=== PATIENT | female | born 1960 | race Caucasian/White ===

== ENCOUNTER 2025-05-26 21:02 | Emergency (ER) | payer OTHER, SELFPAY ==
--- OUTSIDE RECORDS SUMMARY | 2021-08-28 12:13 | XMS_ITS | Encounter Summary ---
Author Organization [facility] Address [facility] [address] [place] [address] Phone Care Team Providers Care Veterinary Attendant Name Role Phone Arpita Asif MD Primary Care Provider [phone] Encounter Details Date Type Department Care Team (Late st Contact Info) Description 08/28/2021 11:13 AM EST Hospital Encounter [facility] [address] [place] [address] Ryan Garcia PA [address] [place] [address] [email or web address] Social History Tobacco Use Types Packs/Day Years Used Date Smoking Tobacco: Every Day Cigarettes 0.5 3 Smokeless Tobacco: Never Alcohol Use Standard Drinks/Week Comments Not Currently 0 (1 standard drink = 0.6 oz pur e alcohol) no drink x 19 months Child or Family Care Answer Date Record ed Do you have problems with on e of the following making it difficult for you to work, study, or receive health care? No 08/05/2021 Education Answer Date Recorded Are you interested in more education? Not on boom e 08/15/2023 Are you concerned about learning? Not on file 08/15/2023 No 08/15/2023 No 08/15/2023 Food Answer Date Recorded Within the past 6 months we worried whether our food would run out before we got money to buy more. Never True 08/05/2021 Within the past 6 months the food we bought just didn't last and we didn't have enough money to get more. Never True Residential Stability Answer Date Recor ded What is your housing situation today? I have [place]le [place] 08/05/2021 How many times have you moved in the past 12 tue ths? Two or more times 08/05/2021 Paying for Meds Answer Date Recorded Do you have trouble paying for medicines? No 08/05/2021 Paying Utility Bills Answer Date Record ed Do you have trouble paying your heating or elect ricity bill? No 08/05/2021 Transportation Answer Date Recorded Has the lack of transportati on kept you from medical appointments or from getting medications? Yes 08/05/2021 Unemployment Answer Date Recorded Are you currently unemployed or working on a part-time or temporary basis, and looking for work? I choose not to answer 08/05/2021 Digital Access Answer Date Recorded No 02/14/2023 No 02/14/2023 Reliable internet access at home? Not on file 02/14/2023 Device with a working camera? Not on file Intimate Partner Violence Answer Date R ecorded Are you denied basic needs s uch as food, clothing, or medical care? No 01/04/2024 In the past 12 months have y ou been in a relationship with a person who hurts, threatens, or tries to control you? No 01/04/2024 Are you denied basic needs s uch as food, clothing, or medical care? No 01/04/2024 In the past 12 months have y ou been in a relationship with a person who hurts, threatens, or tries to control you? 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 Wish to be (Past 1 Month) No 01/04/2024 7:05 PM EDT Mary Grace Donaldson RN 2. Non-Specific Active Suicidal Thoughts (Past 1 Month) No 01/04/2024 7:05 PM EDT Mary Grace Donaldson RN 3. Active Suicidal Ideation with any Methods (Not Plan) Without Intent to Act (Past 1 Month) Yes 02/04/2022 5:32 PM EDT Leslie Villalobos RN 4. Active Suicidal Ideation with Some Intent to Act, Without Specific Plan (Past 1 Month) No 02/04/2022 5:32 PM EDT Leslie Villalobos RN 5. Active Suicidal Ideation with Specific Plan and Intent (Past 1 Month) Yes 02/04/2022 5:32 PM EDT Leslie Villalobos RN 6. Suicidal Behavior (Lifetime) No 01/04/2024 7:05 PM EDT Mary Grace Donaldson RN documented as of this encounter Plan of Treatment Upcoming Encounters Date Type Department Care Team (Late st Contact Info) Description 05/23/2025 Procedure Pass [facility] [address] [facility] [address] [place] [address] 09/18/2025 11:00 AM EST Office Visit [facility] [address] [facility] [address] [place] [address] Arpita Asif MD [address] [place] [address] 11/05/2025 3:00 PM EST Appointment [facility] [address] [facility] [address] [place] [address] Arpita Asif MD [address] [place] [address] [email or web address] documented as of this encounter Procedures Procedure Name Priority Date/Time Associated Diagnosis Comments XR CHEST PA AND LATERAL 2 VIEWS Urgent/patient waiting 08/28/2021 11:20 AM EST Bronchitis documented in this encounter Results * XR CHEST PA AND LATERAL 2 VIEWS (08/28/2021 11:20 AM EST) Anatomical Region Laterality Modality Chest Computed Radiogr aphy 08/28/2021 11:2 3 AM EST Impressions 08/28/2021 11:29 AM EST No pneumonia or pulmonary edema. ATTESTATION: Harman Benitez as teaching physician, have reviewed the images for this case and if necessary edited the report originally created by Sherif Richards. Narrative 08/28/2021 11:29 AM EST XR CHEST PA AND LATERAL 2 VIEWS COMPARISON: XR CHEST PORTABLE and chest x-ray dated August 20, 2017. FINDINGS: Devices/Tubes/Lines: None. Lungs: No focal consolidation or pulmonary edema. Bibasilar atelectasis. Pleura: No pleural effusion or pneumothorax. Heart/Mediastinum: Normal cardiomediastinal silhouette. Bones/Soft Tissues: Mild anterior compression deformity of the lower thoracic vertebral body, new since 2016. No significant skeletal abnormality. Procedure Note Harman Oseguera, DO - 08/28/2021 XR CHEST PA AND LATERAL 2 VIEWS COMPARISON: XR CHEST PORTABLE and chest x-ray dated 2016. FINDINGS: Devices/Tubes/Lines: None. Lungs: No focal consolidation or pulmonary edema. Bibasilar atelectasis. Pleura: No pleural effusion or pneumothorax. Heart/Mediastinum: Normal cardiomediastinal silhouette. Bones/Soft Tissues: Mild anterior compression deformity of the lowerthoracic vertebral body, new since 2016. No significant skeletalabnormality. IMPRESSION: No pneumonia or pulmonary edema. ATTESTATION: Harman Benitez as teaching physician, have reviewed theimages for this case and if necessary edited the report originally createdby Sherif Richards. Ryan WILSON IMG XR CHEST Final Resul t documented in this encounter Visit Diagnoses Not on filedocumented in this encounter Additional Health Concerns Infection Onset Date Last Indicated Resolved Time CoV-Risk Comment:Per Ambulatory Triage Form 08/17/2021 08/28/202109/07 1:23 AM EST CoV-Exposed Comment:Recent close contact documented in the Travel/Symptom Screening Form 01/28/2022 01/28/2022 02/08/2022 1:23 AM E DT CoV-Risk 10/07/2022 10/07/2022 10/18/2022 1:22 AM EST Assessment Noted Time PHQ-2 Depression Total Score: 2 08/05/20 1:39 AM EST documented as of this encounter Care Teams Veterinary Attendant Relationship Specialty Start Date End Date Arpita Asif MD [address] [place] [address] [email or web address] PCP - General Family Medicine 08/06/21 documented as of this encounter Additional Source Comments The information contained in this document represents components of the legal health record. It is not the complete legal health record.[facility]
[2025-05-26 21:16] VITALS: BP 142/88; BP 99/61; PULSE 75; PULSE 88; RESP 16; TEMP 36.6; O2SAT 95; O2SAT 97; BMI 29.5
--- NOTE | 2025-05-26 21:30 | ED.ALCOHOL ---
HPI - Alcohol General Chief Complaint: ETOH/Substance Use Stated Complaint: etoh Time Seen by Provider: 05/26/25 21:03 History of Present Illness HPI narrative: Patient is a 64-year-old female presents today with having grossly intoxicated. Patient was drinking heavily at a restaurant. There is no suicidal homicidal ideation. Patient had some stressors in life. Related Data Previous Rx's ?Medication ?Instructions ?Recorded ondansetron 4 mg disintegrating 4 mg PO Q8H PRN nausea and 05/27/25 tablet vomiting #10 tabs Allergies Allergy/AdvReac Type Severity Reaction Status Date / Time No Known Allergies Allergy Verified 05/26/25 21:18 Review of Systems Review of Systems: No fever no chills no chest pain or shortness breath PMFSH Past Medical History Attestation statement: The following information was validated with the patient. Physical Exam ED Exam Exam: Appearance: Alert. Oriented X3. No acute distress. Eyes: Pupils equal, round and reactive to light. ENT: Pharynx normal. Neck: Normal inspection. Neck supple. No lymph nodes noted. No crepitus CVS: Normal heart rate and rhythm. Pulses normal. Normal S1 and S2 Respiratory: No respiratory distress. Breath sounds normal. No Wheezing. No rales Abdomen: Soft and nontender. No rigidity. No distention. good BS x4 Skin: Skin warm and dry. Normal skin color. Normal skin turgor. Extremities: No lower extremity edema. Neurovascular intact to all extremities. No Lacerations. No Rash Neuro: Oriented X 3. No motor deficit. No sensory deficit. Moving all extermities. No slurred speech Vital Signs: Vital Signs - 24 hr 05/26/25 21:16 05/27/25 00:16 05/27/25 04:50 Temperature 97.9 F Pulse Rate 75 78 Respiratory Rate 16 14 16 Blood Pressure 99/61 134/84 Pulse Oximetry 95 95 Oxygen Delivery Method Room Air Room Air BMI result Body Mass Index 29.5 Medical Decision Making Medical Decision Making MDM Narrative: Currently awaiting clinical sobriety. Patient's electrolytes are unremarkable. Patient's alcohol was at 0242 at approximately 23:00. Currently awaiting sobering. Likely can be discharged home in a.m.. Not suicidal not homicidal 5:56 AM 05/27/2025 (Dr. Pippa Terry D.O.) patient is now sober as evidenced by clear speech and steady gait. Plan for discharge home and outpatient follow up. Patient understands and agrees with plan for discharge. Discharged home in stable condition. Differential Diagnosis Differential Diagnoses: The differential diagnosis associated with the presentation includes ETOH intoxication versus altered mental status Lab Data MDM Lab Attestation statement: I reviewed the patient's lab results. 05/26/25 21:58 05/26/25 22:43 Labs: Lab Results 05/26/25 05/26/25 Range/Units 21:58 22:43 WBC 7.7 (4.8-10.8) X10*3/uL RBC 4.74 (4.20-5.50) X10*6/uL Hgb 14.1 (12.0-16.0) g/dl Hct 41.6 (37.0-47.0) % MCV 87.8 (80.0-98.0) fL MCH 29.7 (27.0-33.0) pg MCHC 33.9 (31.0-35.0) g/dl RDW 12.6 (11.0-16.0) % Plt Count 235 (160-400) X10*3/uL MPV 9.6 (9.4-12.3) fL Immature Gran % (Auto) 0.1 (0.0-0.4) % Neut % (Auto) 66.4 (45-73) % Lymph % (Auto) 26.5 (20-40) % [place] % (Auto) 5.1 (2-11) % Eos % (Auto) 1.0 (0-4) % Baso % (Auto) 0.9 (0-2) % Lymph # (Auto) 2.0 (1.2-4.9) X10*3/uL [place] # (Auto) 0.4 (0.1-1.2) X10*3/uL Eos # (Auto) 0.1 (0.0-0.4) X10*3/uL Baso # (Auto) 0.1 (0.0-0.2) X10*3/uL Abs Immat Gran (auto) 0.01 (0.00-0.03) X10*3/uL Absolute Neuts (auto) 5.1 (2.0-8.3) x10*3/uL Absolute Nucleated RBC 0.000 (0.0-0.012) X10*3/uL Nucleated RBC % (auto) 0.0 (0.0-0.2) /100WBC Sodium 145 (135-145) mmol/L Potassium 3.9 (3.3-5.1) mmol/L Chloride 109 H (96-108) mmol/L Carbon Dioxide 23 (22-29) mmol/L Anion Gap 17 (12-20) BUN 6 L (9-16) mg/dL Creatinine 0.68 (0.5-1.4) mg/dL Estim Creat Clear Calc 98.9 Estimated GFR > 60 Random Glucose 99 (60-115) mg/dL Calcium 8.7 (8.4-10.2) mg/dL Ethyl Alcohol 243 mg/dL Social Determinants Patient?s care significantly limited by Social Determinants of Health including: Problems related to primary support group Medications Administered Discontinued Medications Generic Name Dose Route Start Last Admin Trade Name Freq PRN Reason Stop Dose Admin Sodium Chloride 1,000 mls @ 999 mls/hr 05/26/25 21:30 05/26/25 23:20 Ns IV 05/26/25 22:30 Infused .Q1H1M ABENA Infusion Ondansetron HCl 4 mg 05/27/25 05:08 05/27/25 05:12 Ondansetron Odt 4 Mg Tab.Rapdis TRANSLINGU 05/27/25 05:09 4 mg ONCE ONE Administration Discharge Plan Discharge Clinical Impression: Alcoholic intoxication Patient Disposition: Home, Self-Care Instructions: Abuse of Alcohol (DC) Additional Instructions: Alcohol use disorder You were seen in the Emergency Department today for treatment of alcohol use disorder.? You may have been given medications to help with your withdrawal symptoms.? Please do not drink alcohol with them. This is very dangerous and can cause respiratory depression or other adverse reactions depending on the medication. If you would like to cut down or stop your alcohol use please consider calling our outpatient Addiction Treatment office:? [facility] (M-F 9a-[id number]) [address] [place] [address] You have also been given a list of treatment providers in the area that can assist as well.? If you experience seizures, vomiting blood, black stools, falls, severe headache, chest pain, fevers, trouble breathing, hallucinations or any other concerns you need to call [phone] or seek immediate care. Please stay hydrated. Prescriptions: New ondansetron 4 mg tablet,disintegrating 4 mg PO Q8H PRN (Reason: nausea and vomiting) Qty: 10 0RF Referrals: your doctor [Other] - 05/29/25 Print Language: Cypriot
[2025-05-26 22:05] LABS: Hematocrit 41.6 % (37.0-47.0); Hemoglobin 14.1 g/dl (12.0-16.0); Imm Gran Abs Auto 0.01 X10*3/uL (0.00-0.03); Imm Gran Pct Auto 0.1 % (0.0-0.4); Lymphocytes Absolute Auto 2.0 X10*3/uL (1.2-4.9); MANUAL DIFF FLAG NO; Mean Corpuscular HGB Conc 33.9 g/dl (31.0-35.0); Mean Corpuscular Hemoglobin 29.7 pg (27.0-33.0); Mean Corpuscular Volume 87.8 fL (80.0-98.0); NRBC Abs Auto 0.000 X10*3/uL (0.0-0.012); NRBC Pct Auto 0.0 /100WBC (0.0-0.2); Platelet Count 235 X10*3/uL (160-400); Red Blood Count 4.74 X10*6/uL (4.20-5.50); White Blood Count 7.7 X10*3/uL (4.8-10.8)
[2025-05-26 22:59] LABS: Anion Gap 17 (12-20); Blood Urea Nitrogen 6 mg/dL (9-16); Calcium 8.7 mg/dL (8.4-10.2); Carbon Dioxide 23 mmol/L (22-29); Chloride 109 mmol/L (96-108); Creatinine Clr Calc Pharmacy 98.9; Estimated Glomerular Filt Rate > 60; Potassium 3.9 mmol/L (3.3-5.1); Sodium 145 mmol/L (135-145)
--- NOTE | 2025-05-26 23:11 | PC.NURSE ---
At approximately 22:30, patient attempted to elope the ED and removed her IV from right wrist while this RN was caring for a patient in another room. Patient was dressed in her own clothing. Patient redirected back to bed, changed into [facility] attire. New IV access established to right hand (22g) by this RN. IV fluids resumed. Lights dimmed for comfort, within view from nurse's station.
[2025-05-27 00:16] VITALS: RESP 14
[2025-05-27 04:50] VITALS: BP 134/84; PULSE 78; RESP 16; O2SAT 95
[2025-05-27 06:26] VITALS: BP 134/84; PULSE 78; RESP 16; TEMP 36.8; O2SAT 95
--- OUTSIDE RECORDS SUMMARY | 2025-05-27 06:31 | XMS_ITS | Encounter Summary ---
Author Organization [facility] Address [facility] [employer] [facility] [address] [place] [address] Phone Care Team Providers Care Customer Experience Leader Name Role Phone Margaret Moy MD Primary Care Provider [phone] Margaret Moy MD Unavailable [phone] Arpita Asif MD Primary Care Provider [phone] Arpita Asif MD Unavailable Margaret Moy MD Unavailable Arpita Asif MD Unavailable Arpita Asif MD Unavailable Encounter Details Date Type Department Care Team (Late st Contact Info) Description 05/09/2021 Procedure Pass [facility], Ct Scan - [facility] [address] [place] [address] Social History Tobacco Use Types Packs/Day Years Used Date Smoking Tobacco: Every Day Cigarettes 0.5 2 Smokeless Tobacco: Never Alcohol Use Standard Drinks/Week Comments Yes 0 (1 standard drink = 0.6 oz pur e alcohol) 1 bottle daily Comments No Sex and Gender Information Value [...] Date of Assessment Author No Risk Indicated 05/09/2021 6:14 PM EDT Jeannie Staples, RN * [place] Suicide Severity Rating Scale (Screener/Recent Self-Report) Question Answer Date of Assessment Author 1. Wish to be (Past 1 Month) No 021 6:14 PM EDT Jeannie Elizabeth, RN 2. Non-Specific Active Suici mal Thoughts (Past 1 Month) No 05/09/2021 6:14 PM EDT Jeannie Elizabeth, SHELLY 6. Suicidal Behavior (Lifetime) No 6:14 PM EDT Jeannie Elizabeth, RN documented as of this encounter Plan of Treatment Upcoming Encounters Date Type Department Care Team (Late st Contact Info) Description 05/23/2025 Procedure Pass [facility] [address] [address] 09/18/2025 11:00 AM EST Office Visit [facility] [address] [address] Arpita Asif MD [address] [place] [address] [email or web address] 11/05/2025 3:00 PM EST Appointment [facility] [address] [address] Arpita Asif MD [address] [place] [address] [email or web address] documented as of this encounter Visit Diagnoses Not on filedocumented in this encounter Additional Health Concerns Infection Onset Date Last Indicated Resolved Time CoV-Risk Comment:Per Ambulatory Triage Form 08/17/2021 08/28/202109/07 1:23 AM EST CoV-Exposed Comment:Recent close contact documented in the Travel/Symptom Screening Form 01/28/2022 01/28/2022 02/08/2022 1:23 AM E DT CoV-Risk 10/07/2022 10/07/2022 10/18/2022 1:22 AM EST documented as of this encounter Care Teams Customer Experience Leader Relationship Specialty Start Date End Date Margaret Moy MD [address] [place] [address] [email or web address] PCP - General Internal Medicine 07/12/17 08/05/21 Arpita Asif MD [address] [place] [address] PCP - General Family Medicine 08/06/21 Margaret Moy MD [address] [place] [phone] Insurance Assigned Provider 12/23/18 06/27/21 Arpita Asif MD [address] [place] [address] Insurance Assigned Provider 12/26/21 06/26/22 Margaret Moy MD [address] [place] [address] Insurance Assigned Provider 07/25/22 08/28/22 Arpita Asif MD [address] [place] [address] Insurance Assigned Provider 12/24/23 03/24/24 Arpita Asif MD [address] [place] [address] [email or web address] Insurance Assigned Provider 06/24/24 documented as of this encounter Additional Source Comments The information contained in this document represents components of the legal health record. It is not the complete legal health record.[facility]
--- OUTSIDE RECORDS SUMMARY | 2025-05-27 06:31 | XMS_ITS | Encounter Summary ---
Author Organization [facility] Address [address] [facility] [address] [place] [address] Phone Care Team Providers Care Purchasing Officer Name Role Phone Arpita Asif MD Primary Care Provider [phone] Arpita Asif MD Unavailable Margaret Moy MD Unavailable [phone] Arpita Asif MD Unavailable Arpita Asif MD Unavailable Encounter Details Date Type Department Care Team (Late st Contact Info) Description 11/27/2021 Procedure Pass [facility], Ct Scan - [address] [phone] Social History Tobacco Use Types Packs/Day Years Used Date Smoking Tobacco: Every Day Cigarettes 0.5 3 Smokeless Tobacco: Never Alcohol Use Standard Drinks/Week Comments Yes 0 (1 standard drink = 0.6 oz pur e alcohol) 1 bottle daily Child or Family Care Answer Date Record ed Do you have problems with on e of the following making it difficult for you to work, study, or receive health care? No 08/05/2021 Education Answer Date Recorded Are you interested in help w ith more adult education (for example, completing high school, GED, job training, learning the [place] language, technical skills, or developing parenting skills)? No 08/05/2021 Food Answer Date Recorded Within the past [...] have you moved in the past 12 tue? Two or more times 08/05/2021 Paying for [...] work? I choose not to answer 08/05/2021 Comments No Sex and Gender Information Value [...] Date of Assessment Author No Risk Indicated 11/27/2021 10:32 PM Ebonie Magana RN * [place] Suicide Severity Rating Scale (Screener/Recent Self-Report) Question Answer Date of Assessment Author 1. Wish to be (Past 1 Month) No 022 10:32 PM Ebonie Kirk, SHELLY 2. Non-Specific Active Suici mal Thoughts (Past 1 Month) No 11/27/2021 10:32 PM Ebonie Kirk, SHELLY 6. Suicidal Behavior (Lifetime) No 10:32 PM Ebonie Kirk, SHELLY documented as of this encounter Plan of Treatment Upcoming Encounters Date Type Department Care Team (Late st Contact Info) Description 05/23/2025 Procedure Pass [facility] [address] [place] [address] 09/18/2025 11:00 AM EST Office Visit [facility] [address] [address] Arpita Asif MD [address] [address] 11/05/2025 3:00 PM EST Appointment [facility] [address] [place] [address] Arpita Asif MD [address] [place] [address] documented as of this encounter Visit Diagnoses Not on filedocumented in this encounter Additional Health Concerns Infection Onset Date Last Indicated Resolved Time CoV-Exposed Comment:Recent close contact documented in the Travel/Symptom Screening Form 01/28/2022 01/28/2022 02/08/2022 1:23 AM E DT CoV-Risk 10/07/2022 10/07/2022 10/18/2022 1:22 AM EST Assessment Noted Time PHQ-2 Depression Total Score: 2 08/05/20 21 1:39 AM EST documented as of this encounter Care Teams Purchasing Officer Relationship Specialty Start Date End Date Arpita Asif MD [address] [address] PCP - General Family Medicine 08/06/21 Arpita Asif MD [address] [address] Insurance Assigned Provider 12/26/21 06/26/22 Margaret Moy MD [address] [place] [address], [address] [place] [address] [email or web address] Insurance Assigned Provider 07/25/22 08/28/22 Arpita Asif MD [address] [address] [email or web address] Insurance Assigned Provider 12/24/23 03/24/24 Arpita Asif MD [address] [address] [email or web address] Insurance Assigned Provider 06/24/24 documented as of this encounter Additional Source Comments The information contained in this document represents components of the legal health record. It is not the complete legal health record.[facility]
--- OUTSIDE RECORDS SUMMARY | 2025-05-27 06:31 | XMS_ITS | Encounter Summary ---
Author Organization [facility] Address [facility] [address] [place] [address] Phone Care Team Providers Care Business Office Representative Name Role Phone Margaret Moy MD Primary Care Provider Margaret Moy MD Unavailable Arpita Asif MD Primary Care Provider Arpita Asif MD Unavailable Margaret Moy MD Unavailable Arpita Asif MD Unavailable Arpita Asif MD Unavailable Encounter Details Date Type Department Care Team (Late st Contact Info) Description 05/27/2020 Procedure Pass [address] [address] Social History Tobacco Use Types Packs/Day Years [...] on file documented as of this encounter Plan of Treatment Upcoming Encounters Date Type Department Care Team (Late st Contact Info) Description 05/23/2025 Procedure Pass [facility] [address] [address] 09/18/2025 11:00 AM EST Office Visit [facility] [address] [address] Arpita Asif MD [address] [place] [address] 201 [place] [address] 11/05/2025 3:00 PM EST Appointment [facility] Diagnostic [place] [id number] [address] Arpita Asif MD [address] [place] [address] documented as of this encounter Visit Diagnoses [...] documented as of this encounter Care Teams Business Office Representative Relationship Specialty Start Date End Date Margaret Moy MD [address] [place] [address], 2nd [place] [address] PCP - General Internal Medicine 07/12/17 08/05/21 Arpita Asif MD [address] [address] PCP - General Family Medicine 08/06/21 Margaret Moy MD [address] [place] [phone] Insurance Assigned Provider 12/23/18 06/27/21 Arpita Asif MD [address] [phone] Insurance Assigned Provider 12/26/21 06/26/22 Margaret Moy MD [address] [place] [phone] Insurance Assigned Provider 07/25/22 08/28/22 Arpita Asif MD [address] [address] Insurance Assigned Provider 12/24/23 03/24/24 Arpita Asif MD [address] [address] Insurance Assigned Provider 06/24/24 documented as of this encounter Additional Source Comments The information contained in this document represents components of the legal health record. It is not the complete legal health record.[facility]
--- OUTSIDE RECORDS SUMMARY | 2025-05-27 06:31 | XMS_ITS | Encounter Summary ---
Author Organization [facility] Address [address] [facility] [address] [place] [address] Phone Care Team Providers Care Global Supply Chain Vice President Name Role Phone Arpita Asif MD Primary Care Provider [phone] Arpita Asif MD Unavailable Margaret Moy MD Unavailable [phone] Arpita Asif MD Unavailable Arpita Asif MD Unavailable Encounter Details Date Type Department Care Team (Late st Contact Info) Description 09/23/2021 Procedure Pass [facility], Ct Scan - [address] [id number] Social History Tobacco Use Types Packs/Day Years [...] high school, GED, job training, learning the Montenegrin language, technical skills, or developing parenting skills)? [...] Upcoming Encounters Date Type Department Care Team ([facility] st Contact Info) Description 05/23/2025 Procedure Pass [facility] [address] [place] [address] 09/18/2025 11:00 AM EST Office Visit [facility] [place] [facility] 15 [facility] 201 [place] [address] Arpita Asif MD 15 [facility] Michael. [address] [place] [address] 11/05/2025 3:00 PM EST Appointment [facility] [address] [address] Arpita Asif MD [address] [address] [email or web address] documented as of this encounter Visit Diagnoses [...] documented as of this encounter Care Teams Global Supply Chain Vice President Relationship Specialty Start Date End Date Arpita Asif MD [address] [place] [address] [email or web address] PCP - General Family Medicine 08/06/21 Arpita Asif MD [address] [place] [address] [email or web address] Insurance Assigned Provider 12/26/21 06/26/22 Margarte Moy MD [address] [place] [address], 2nd [place] [address] [email or web address] Insurance Assigned Provider 07/25/22 08/28/22 Arpita Asif MD [address] [place] [address] [email or web address] Insurance Assigned Provider 12/24/23 03/24/24 Arpita Asif MD [address] [place] [address] [email or web address] Insurance Assigned Provider 06/24/24 documented as of this encounter Additional Source Comments The information contained in this document represents components of the legal health record. It is not the complete legal health record.[facility]
--- OUTSIDE RECORDS SUMMARY | 2025-05-27 06:31 | XMS_ITS | Encounter Summary ---
Author Organization [facility] Address [facility] [employer] [facility] [address] [place] [address] Phone Care Team Providers Care Executor Of Estate Name Role Phone Arpita Asif MD Primary Care Provider [phone] Arpita Asif MD Unavailable Arpita Asif MD Unavailable Encounter Details Date Type Department Care Team (Late st Contact Info) Description 09/21/2023 Procedure Pass [facility], [address] [address] Social History Tobacco Use Types Packs/Day Years Used Date Smoking Tobacco: Every Day Cigarettes 0.5 3 Smokeless Tobacco: Never Alcohol Use Standard Drinks/Week Comments Not Currently 0 (1 standard drink = 0.6 oz pure alcohol) 1 bottle daily Three bottles 02/04/22 Child or Family Care Answer Date Record [...] have you moved in the past 12 mon ths? Two or more times 08/05/2021 Paying [...] with a working camera? Not on file Comments No Sex and Gender Information Value [...] Date of Assessment Author No Risk Indicated 09/21/2023 10:47 AM Aster Sharma RN * [place] Suicide Severity Rating Scale (Screener/Recent Self-Report) Question Answer Date of Assessment Author 1. Wish to be (Past 1 Month) No 024 10:47 AM Aster Sharma RN 2. Non-Specific Active Suici mal Thoughts (Past 1 Month) No 09/21/2023 10:47 AM Nohemi Sharma RN 6. Suicidal Behavior (Lifetime) No 10:47 AM Aster Sharma, RN documented as of this encounter Plan of Treatment Upcoming Encounters Date Type Department Care Team (Late st Contact Info) Description 05/23/2025 Procedure Pass [facility] [address] [place] [address] 09/18/2025 11:00 AM EST Office Visit [facility] [place] [facility] [address] [address] Arpita Asif MD [address] [place] [address] 11/05/2025 3:00 PM EST Appointment [facility] Diagnostic [address] [address] Arpita Asif MD [address] [place] [address] documented as of this encounter Visit Diagnoses Not on filedocumented in this encounter Additional Health Concerns Assessment Noted Time PHQ-2 Depression Total Score: 2 08/05/20 21 1:39 AM EST documented as of this encounter Care Teams Executor Of Estate Relationship Specialty Start Date End Date Arpita Asif MD [address] [place] [address] PCP - General Family Medicine 08/06/21 Arpita Asif MD [address] [place] [phone] Insurance Assigned Provider 12/24/23 Arpita Asif MD [address] [place] [phone] Insurance Assigned Provider 06/24/24 documented as of this encounter Additional Source Comments The information contained in this document represents components of the legal health record. It is not the complete legal health record.[facility]
--- OUTSIDE RECORDS SUMMARY | 2025-05-27 06:31 | XMS_ITS | Encounter Summary ---
Author Organization [facility] Address [address] [facility] [address] [place] [address] Phone Care Team Providers Care Bricklayer Apprentice Name Role Phone Margaret Moy MD Primary Care Provider [phone] Margaret Moy MD Unavailable Arpita Asif MD Primary Care Provider [phone] Arpita Asif MD Unavailable Margaret Moy MD Unavailable [phone] Arpita Asif MD Unavailable Arpita Asif MD Unavailable Encounter Details Date Type Department Care Team (Late st Contact Info) Description 05/13/2020 Ancillary Orders [facility] [address] [place] [address] [place] [address] Margaret Moy MD 170 [facility], [address]nd [place] [address] Social History Tobacco Use Types Packs/Day Years Used Date Smoking Tobacco: Every Day Cigarettes Smokeless Tobacco: Never Alcohol Use Standard Drinks/Week Comments Yes 0 (1 standard drink = 0.6 oz pur e alcohol) 2 bottle of wine a day Comments No Sex and Gender Information Value [...] st Contact Info) Description 05/23/2025 Procedure Pass [facility] [address] [address] 09/18/2025 11:00 AM EST Office Visit [facility] [address] [place] [address] Arpita Asif MD [address] [place] [address] [email or web address] 11/05/2025 3:00 PM EST Appointment [facility] [address] [address] Arpita Asif MD [address] [place] [address] [email or web address] documented as of this encounter Visit Diagnoses [...] documented as of this encounter Care Teams Bricklayer Apprentice Relationship Specialty Start Date End Date Margaret Moy MD [address] [place] [address], 2nd [place] [address] PCP - General Internal Medicine 07/12/17 08/05/21 Arpita Asif MD [address] [address] PCP - General Family Medicine 08/06/21 Margaret Moy MD [address] [place] [phone] Insurance Assigned Provider 12/23/18 06/27/21 Arpita Asif MD [address] [place] [address] Insurance Assigned Provider 12/26/21 06/26/22 Margaret Moy MD [address] [place] [address] Insurance Assigned Provider 07/25/22 08/28/22 Arpita Asif MD [address] [address] Insurance Assigned Provider 12/24/23 03/24/24 Arpita Asif MD [address] [address] Insurance Assigned Provider 06/24/24 documented as of this encounter Additional Source Comments The information contained in this document represents components of the legal health record. It is not the complete legal health record.[facility]
--- OUTSIDE RECORDS SUMMARY | 2025-05-27 06:31 | XMS_ITS | Encounter Summary ---
Author Organization [facility] Address [facility] [address] [place] [address] Phone Care Team Providers Care Rate Clerk Passenger Name Role Phone Arpita Asif MD Primary Care Provider [phone] Arpita Asif MD Unavailable Arpita Asif MD Unavailable Encounter Details Date Type Department Care Team (Late st Contact Info) Description 09/27/2023 Procedure Pass [facility] 30 [place] [address] Social History Tobacco Use Types Packs/Day Years [...] st Contact Info) Description 05/23/2025 Procedure Pass [facility] 1153 [facility] [address] [place] [address] 09/18/2025 11:00 AM EST Office Visit [facility] [place] [facility] 15 [facility] [address] [place] [address] Arpita Asif MD 15 [facility] 201 [place] [address] 11/05/2025 3:00 PM EST Appointment [facility] [address] [place] [address] Arpita Asif MD [address] [address] [email or web address] documented as of this encounter Visit Diagnoses Not on filedocumented in this encounter Additional Health Concerns Assessment Noted Time PHQ-2 Depression Total Score: 2 08/05/20 21 1:39 AM EST documented as of this encounter Care Teams Rate Clerk Passenger Relationship Specialty Start Date End Date Arpita Asif MD [address] [address] PCP - General Family Medicine 08/06/21 Arpita Asif MD [address] [phone] Insurance Assigned Provider 12/24/23 Arpita Asif MD [address] [address] [email or web address] Insurance Assigned Provider 06/24/24 documented as of this encounter Additional Source Comments The information contained in this document represents components of the legal health record. It is not the complete legal health record.[facility]
--- OUTSIDE RECORDS SUMMARY | 2025-05-27 06:31 | XMS_ITS | Encounter Summary ---
Author Organization [facility] Address [address] [place] [address] [place] [address] Phone Care Team Providers Care Optical Instrument Assembler Name Role Phone Margaret Moy MD Unavailable Bárbara Renteria PASSENGER SERVICE MANAGER Unavailable Sharyn Vale DO Unavailable Dunia Rayo PASSENGER SERVICE MANAGER Unavailable Mojgan Maynard DO Unavailable Eri Solis MD Unavailable Nabeel Stoddard MD Unavailable Beatriz Millard MD Unavailable Raheem Yo MD Unavailable Rosalie Welch PASSENGER SERVICE MANAGER Unavailable Lorie Mayo MD Unavailable Kyra Rosario PASSENGER SERVICE MANAGER Unavailable [phone] Karlos Smart MD Unavailable Ángel Shelton MD Unavailable Anton Gibson MD Unavailable Jessy Lopez MD Unavailable Rick Andersen MD Unavailable Margaret Moy MD Primary Care Provider Margaret Moy MD Unavailable Margaret Moy MD Unavailable Arpita Asif MD Primary Care Provider [phone] Arpita Asif MD Unavailable Margaret Moy MD Unavailable [phone] Arpita Asif MD Unavailable Arpita Asif MD Unavailable Encounter Details Date Type Department Care Team (Late st Contact Info) Description 07/18/2018 Ancillary Orders [facility] Medical [address] [place] [address] Margaret Moy MD [address] [place] [address], 2nd [place] [address] [email or web address] Breast screening Social History Tobacco Use Types Packs/Day Years Used Date Smoking Tobacco: Every Day Smokeless Tobacco: Never Alcohol Use Standard Drinks/Week Comments No 0 (1 standard drink = 0.6 oz pur e alcohol) SOber x 20 days Comments No Sex and Gender Information Value [...] st Contact Info) Description 05/23/2025 Procedure Pass [facility] [address] [address] 09/18/2025 11:00 AM EST Office Visit [facility] [address] [place] [address] [address] [place] [address] Arpita Asif MD 15 [facility] Michael. [address] [place] [address] [email or web address] 11/05/2025 3:00 PM EST Appointment [facility] [address] [place] [address] Arpita Asif MD 15 [facility] Michael. [address] [place] [address] [email or web address] documented as of this encounter Results * BI MAMMOGRAM SCREENING WITH TOMOSYNTHESIS WITH CAD (BILATERAL) (07/19/2018 10:43 AM EDT) Anatomical Region Laterality Modality Breast Left, Breast Right, Breast Bilateral Bila teral Mammography 07/19/2018 4:16 PM EDT Impressions 07/19/2018 4:21 PM EDT No mammographic signs of malignancy. Annual screening is recommended. BI-RADS CATEGORY: 1 - Negative. DENSITY: There are scattered fibroglandular densities. POS - CDHMAMA Narrative 07/19/2018 4:21 PM EDT Bilateral mammography is performed in conjunction with computed aided detection. 3-D tomography along with 2-D C view imaging was also performed. Comparison made to previous dated as far back as 11/22/2011 and as recent as 05/31/2017. No suspicious masses, areas of architectural distortion or suspicious microcalcifications. Procedure Note Jake Michael MD - 07/19/2018 Bilateral mammography is performed in conjunction with computed aideddetection. 3-D tomography along with 2-D C view imaging was alsoperformed. Comparison made to previous dated as far back as 11/22/2011 andas recent as 05/31/2017. No suspicious masses, areas of architectural distortion or suspiciousmicrocalcifications. IMPRESSION: No mammographic signs of malignancy. Annual screening is recommended. BI-RADS CATEGORY: 1 - Negative. DENSITY: There are scattered fibroglandular densities. POS - CDHMAMA us Margaret Moy MD IMG MG EXAMS Final Result documented in this encounter Visit Diagnoses Diagnosis Breast screening Breast screening, unspecified Breast screening Breast screening, unspecified Visit for screening mammogram documented in this encounter Additional Health Concerns Infection Onset Date Last Indicated Resolved Time CoV-Risk Comment:COVID-19 test pending 12/10/2019 12/10/2019 12/24/2019 1:24 AM EDT CoV-Risk Comment:Per Ambulatory Triage Form 08/17/2021 08/28/202109/07 1:23 AM EST CoV-Exposed Comment:Recent close contact documented in the Travel/Symptom Screening Form 01/28/2022 01/28/2022 02/08/2022 1:23 AM E DT CoV-Risk 10/07/2022 10/07/2022 10/18/2022 1:22 AM EST documented as of this encounter Care Teams Optical Instrument Assembler Relationship Specialty Start Date End Date Margaret Moy MD [address] [place] [address] [email or web address] PCP - General Internal Medicine 07/12/17 08/05/21 Arpita Asif MD [address] [address] [email or web address] PCP - General Family Medicine 08/06/21 Margaret Moy MD [address] [place] [address] [email or web address] Historical LMR Provider 07/10/17 12/07/19 Bárbara Renteria NP [facility] [address] Historical LMR Provider 07/10/17 Sharyn Vale DO [address] [place] [address] [email or web address] Historical LMR Provider 07/10/17 12/07/19 Dunia Rayo NP [address] [place] [address] 340 [place] [address] Historical LMR Provider 07/10/17 Mojgan Maynard DO [address] [place] [address] 7 [place] [address] Historical LMR Provider 07/10/17 12/07/19 Eri Solis MD [address] [place] [address], 2nd [place] [address] Historical LMR Provider 07/10/17 Nabeel Stoddard MD [address] [place] [address], [address] [place] [address] Historical LMR Provider 07/10/17 0 Beatriz Millard MD [address] [place] [address], [address] [place] [address] Historical LMR Provider 07/10/17 12/07/19 Raheem Yo MD [address] [place] [address] [place] [address] [email or web address] Historical LMR Provider 07/10/17 12/07/19 Rosalie Welch NP [address] [place] [address] Historical LMR Provider 07/10/17 Lorie Mayo MD [address] [place] [address] 7 [place] [address] [email or web address] Historical LMR Provider 07/10/17 0 Kyra Rosario NP 30 [place] [address] Historical LMR Provider 07/10/17 Karlos Smart MD [address] [place] [address] Historical LMR Provider 07/10/17 Ángel Shelton MD [address] [place] [address] 102 [place] [address] [email or web address] Historical LMR Provider 07/10/17 12/07/19 Anton Gibson MD 61 [place] [address] Historical LMR Provider 07/10/17 [place] [address] [email or web address] Historical LMR Provider 07/10/17 12/07/19 Rick Andersen MD [address] [place] [address] Historical LMR Provider 07/10/17 0 Margaret Moy MD [address] [place] [phone] Insurance Assigned Provider 12/23/18 12/07/19 Margaret Moy MD [address] [place] [address] Insurance Assigned Provider 12/23/18 06/27/21 Arpita Asif MD [address] [place] [phone] Insurance Assigned Provider 12/26/21 06/26/22 Margaret Moy MD [address] [place] [phone] Insurance Assigned Provider 07/25/22 08/28/22 Arpita Asif MD [address] [address] Insurance Assigned Provider 12/24/23 03/24/24 Arpita Asif MD [address] [address] Insurance Assigned Provider 06/24/24 documented as of this encounter Additional Source Comments The information contained in this document represents components of the legal health record. It is not the complete legal health record.[facility]
--- OUTSIDE RECORDS SUMMARY | 2025-05-27 06:31 | XMS_ITS | Encounter Summary ---
Author Organization [facility] Address [address] [address] [place] [address] Phone Care Team Providers Care Chilling Hood Operator Name Role Phone Arpita Asif MD Primary Care Provider [phone] Arpita Asif MD Unavailable Margaret Moy MD Unavailable [phone] Arpita Asif MD Unavailable Arpita Asif MD Unavailable Encounter Details Date Type Department Care Team (Late st Contact Info) Description 11/27/2021 Procedure Pass [facility], Ct Scan - [address] [id number] Social History Tobacco Use Types Packs/Day Years [...] high school, GED, job training, learning the Portuguese language, technical skills, or developing parenting skills)? [...] 11/27/2021 10:32 PM Ebonie Magana RN * [place] Suicide Severity Rating Scale (Screener/Recent Self-Report) Question [...] st Contact Info) Description 05/23/2025 Procedure Pass [facility] [address] [place] [address] 09/18/2025 11:00 AM EST Office Visit [facility] [facility] [address] [address] Arpita Asif MD [address] [address] [email or web address] 11/05/2025 3:00 PM EST Appointment [facility] [address] [place] [address] Arpita Asif MD [address] [place] [address] documented as of this encounter Visit Diagnoses [...] documented as of this encounter Care Teams Chilling Hood Operator Relationship Specialty Start Date End Date Arpita Asif MD [address] [address] PCP - General Family Medicine 08/06/21 Arpita Asif MD [address] [address] Insurance Assigned Provider 12/26/21 06/26/22 Margaret Moy MD [address] [place] [address], 2nd [place] [address] [email or web address] Insurance Assigned Provider 07/25/22 08/28/22 Arpita Asif MD [address] [address] [email or web address] Insurance Assigned Provider 12/24/23 03/24/24 Arpita Asif MD [address] [address] [email or web address] Insurance Assigned Provider 06/24/24 documented as of this encounter Additional Source Comments The information contained in this document represents components of the legal health record. It is not the complete legal health record.[facility]
--- OUTSIDE RECORDS SUMMARY | 2025-05-27 06:31 | XMS_ITS | Clinical Summary ---
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 perceived height lossof about 1 inch. No history of steroid use or hormone therapy. Currently on calcium supplementation. Comparison : 06/26/2020. The lumbar spine and both hips were evaluated and felt to be technicallyadequate. TOTAL bone mineral density in the L1-L4 VERTEBRAL BODIES was calculated at0.913 g/cm2 with a T score of -1.2, and a Z-score of 0.4. This falls within the WHO classification of osteopenia . This represents a 4.2% increase density since 2020. Density of the left femoral NECK is 0.676g/cm2, T score -1.6, Z score-0.1. Density of the TOTAL PROXIMAL FEMUR is 0.813 g/cm2; T-score -1.1;Z-score 0.1. This falls within the WHO classification of osteopenia . This is not a statistically significant change from 2020. IMPRESSION: Ongoing osteopenia in the lumbar spine and left hip. POS -[id number] us Arpita Asif MD IMG BD BONE DENSITY DEXA Final R esult * ENDOSCOPY, COLON (01/12/2022 1:03 PM EDT) Narrative Transcriptions Luis Vences MD - 01/12/2022 1:03 PM EDT Patient Name: Blanca Deng Attending MD:: LUIS VENCES MD, Procedure Date: 01/12/2022 1:03 PM Date of : 1960 Age: 61 Admit Type: Outpatient Gender: Female Room: [place] [address] Referring MD: Arpita Asif Exam Type: Colonoscopy Indications: Screening for colorectal malignant neoplasm Medications: Monitored Anesthesia Care Procedure: Informed consent was obtained from the patientafter discussion of the indications, limitations, alternatives, benefits, and risks of the procedure. Risks specifically discussed include but are not limited to medication reactions, missed lesions, bleeding, perforation, or the need for emergent surgery. Throughout the procedure, the patient's blood pressure, pulse, end-tidal CO2, and oxygensaturations were monitored continuously. The Olympus adult variable colonoscope [id number] #5 was introduced through the anus and advanced to the cecum, identified by appendiceal orifice andileocecal valve. The colonoscopy was performed without difficulty. The patient tolerated the procedurewell. The quality of the bowel preparation was excellent. The quality of the bowel preparation was evaluated using the BBPS ([place] Bowel Preparation Scale)with scores of: Right Colon = 3, Transverse Colon = 3and Left Colon = 3 (entire mucosa seen well with no residual staining, small fragments of stool oropaque liquid). The total BBPS score equals 9. Anatomical landmarks were photographed. Complications: No immediate complications. Estimated blood loss:None. Findings: The perianal and digital rectal examinations were normal. Internal hemorrhoids were found duringretroflexion. The hemorrhoids were mild. The exam was otherwise normal throughout theexamined colon. Impression: - Internal hemorrhoids. - No specimens collected. Recommendation: - Discharge patient to home. - Repeat colonoscopy in 10 years for screening purposes. LUIS VENCES MD, 01/12/2022 1:23:38 PM This report has been signed electronically. Number of Addenda: 0 Note Initiated On: 01/12/2022 1:03 PM Procedure Code(s): --- Professional --- 38160, Colonoscopy, flexible; diagnostic, including collection of specimen(s) by brushing or washing, when performed (separateprocedure) --- Technical --- 74260, Colonoscopy, flexible; diagnostic, including collection of specimen(s) by brushing or washing, when performed (separateprocedure) Diagnosis Code(s): --- Professional --- Z12.11, Encounter for screening for malignantneoplasm of colon K64.8, Other hemorrhoids --- Technical --- Z12.11, Encounter for screening for malignantneoplasm of colon K64.8, Other hemorrhoids CPT copyright 2020 [employer]. All rights reserved. The codes documented in this report are preliminary and upon oracle programmer reviewmay be revised to meet current compliance requirements. Procedure Date: 01/12/2022 1:03:27 PM [address] [place] [address] Arpita Asif MD GI PROCEDURE ORDERABLES Final Re sult from Last 3 Months or Most Recently Relevant to Health Maintenance Insurance [employer] PPO MEDICARE PART A & B [employer] O MEDICARE PART A & [facility] Member Subscriber Plan / Payer (Ef fective 2023-Present) Name:Blanca Day Relation to Subscriber:Self Name:Blanca Day Payer ID:[id number] (NAIC) Type:PPO Address: [facility] [address] [place] [id number] MEDICARE PART A & B [employer] P[employer] Member Subscriber Plan / Payer ( fective 2023-Present) Name:Blanca Day Relation to Subscriber:Self Name:Blanca Day Payer ID:[id number] (NAIC) Type:PPO Address: [facility] [id number] [place] [id number] MEDICARE PART A & B [facility] PART A & B Care Teams Supervisor Tree Trimming Relationship Specialty Start Date End Date Arpita Asif MD [address] [address] [email or web address] PCP - General Family Medicine 08/06/21 Arpita Asif MD [address] [address] [email or web address] Insurance Assigned Provider 06/24/24 Additional Source Comments The information contained in this document represents components of the legal health record. It is not the complete legal health record.[facility]
--- OUTSIDE RECORDS SUMMARY | 2025-05-27 06:31 | XMS_ITS | Encounter Summary ---
Author Organization [facility] Address [address] [facility] [address] [place] [address] Phone Care Team Providers Care Oim Consultant Name Role Phone Arpita Asif MD Primary Care Provider Arpita Asif MD Unavailable Margaret Moy MD Unavailable [phone] Arpita Asif MD Unavailable Arpita Asif MD Unavailable Encounter Details Date Type Department Care Team (Late st Contact Info) Description 08/21/2021 Procedure Pass [facility], [address] [id number] Social History Tobacco Use Types Packs/Day Years [...] high school, GED, job training, learning the Czech language, technical skills, or developing parenting skills)? [...] your housing situation today? I have nichelle sing 08/05/2021 How many times have you moved [...] Upcoming Encounters Date Type Department Care Team ([facility] st Contact Info) Description 05/23/2025 Procedure Pass [facility] [address] [place] [address] 09/18/2025 11:00 AM EST Office Visit [facility] [address] [facility] [address] [place] [address] Arpita Asif MD 15 [facility] Michael. [address] [place] [address] 11/05/2025 3:00 PM EST Appointment [facility] [address] [address] Arpita Asif MD [address] [address] [email or web address] documented as of this encounter Visit Diagnoses [...] documented as of this encounter Care Teams Oim Consultant Relationship Specialty Start Date End Date Arpita Asif MD [address] [place] [address] PCP - General Family Medicine 08/06/21 Arpita Asif MD [address] [place] [address] [email or web address] Insurance Assigned Provider 12/26/21 06/26/22 Margaret Moy MD [address] [place] [address], [address] [place] [address] [email or web address] Insurance Assigned Provider 07/25/22 08/28/22 Arpita Asif MD [address] [place] [address] [email or web address] Insurance Assigned Provider 12/24/23 03/24/24 Arpita Asif MD 15 [place] [address] [email or web address] Insurance Assigned Provider 06/24/24 documented as of this encounter Additional Source Comments The information contained in this document represents components of the legal health record. It is not the complete legal health record.[facility]
--- OUTSIDE RECORDS SUMMARY | 2025-05-27 06:31 | XMS_ITS | Encounter Summary ---
Author Organization [facility] Address [address] [facility] [address] [place] [address] Phone Care Team Providers Care Crane Crew Supervisor Name Role Phone Arpita Asif MD Primary Care Provider [phone] Arpita Asif MD Unavailable Margaret Moy MD Unavailable [phone] Arpita Asif MD Unavailable Arpita Asif MD Unavailable Encounter Details Date Type Department Care Team (Late st Contact Info) Description 01/12/2022 Procedure Pass [facility] Admitting Dept Virtual Department [address] [place] [address] [id number] Social History Tobacco Use Types Packs/Day Years [...] high school, GED, job training, learning the Cay[place] Islander language, technical skills, or developing parenting skills)? [...] Upcoming Encounters Date Type Department Care Team ([facility] st Contact Info) Description 05/23/2025 Procedure Pass [facility] [address] [place] [address] 09/18/2025 11:00 AM EST Office Visit [facility] 15 [facility] [address] [place] [address] Arpita Asif MD 15 [facility] Michael. [address] [place] [address] 11/05/2025 3:00 PM EST Appointment [facility] [address] [address] Arpita Asif MD [address] [address] [email or web address] documented as of this encounter Visit Diagnoses [...] documented as of this encounter Care Teams Crane Crew Supervisor Relationship Specialty Start Date End Date Arpita Asif MD [address] [address] [email or web address] PCP - General Family Medicine 08/06/21 Arpita Asif MD [address] [place] [address] [email or web address] Insurance Assigned Provider 12/26/21 06/26/22 Margaret Moy MD [address] [place] [address], [address] [place] [address] [email or web address] Insurance Assigned Provider 07/25/22 08/28/22 Arpita Asif MD [address] [place] [address] [email or web address] Insurance Assigned Provider 12/24/23 03/24/24 Arpita Asif MD [address] [address] [email or web address] Insurance Assigned Provider 06/24/24 documented as of this encounter Additional Source Comments The information contained in this document represents components of the legal health record. It is not the complete legal health record.[facility]
--- OUTSIDE RECORDS SUMMARY | 2025-05-27 06:31 | XMS_ITS | Encounter Summary ---
Author Organization [facility] Address [facility] [employer] [place] [facility] [address] [place] [address] Phone Care Team Providers Care Chemistry Physics Teacher Name Role Phone Arpita Asif MD Primary Care Provider [phone] Arpita Asif MD Unavailable Arpita Asif MD Unavailable Encounter Details Date Type Department Care Team (Late st Contact Info) Description 09/16/2023 Procedure Pass [facility], Ct Scan - [address] [address] Social History Tobacco Use Types Packs/Day Years [...] Date of Assessment Author No Risk Indicated 09/16/2023 11:47 AM EST Caryl Aldridge, SHELLY * [place] Suicide Severity Rating Scale (Screener/Recent Self-Report) Question Answer Date of Assessment Author 1. Wish to be (Past 1 Month) No 023 11:47 AM Caryl Silverio, RN 2. Non-Specific Active Suici mal Thoughts (Past 1 Month) No 09/16/2023 11:47 AM Kendall Silverio, RN 6. Suicidal Behavior (Lifetime) No 11:47 AM Caryl Silverio, RN documented as of this encounter Plan of Treatment Upcoming Encounters Date Type Department Care Team (Late st Contact Info) Description 05/23/2025 Procedure Pass [facility] [address] [place] [address] 09/18/2025 11:00 AM EST Office Visit [facility] [address] [place] [address] Arpita Asif MD [address] [place] [address] 11/05/2025 3:00 PM EST Appointment [facility] Diagnostic [address] [address] Arpita Asif MD [address] [place] [address] documented as of this encounter Visit Diagnoses Not on filedocumented in this encounter Additional Health Concerns Assessment Noted Time PHQ-2 Depression Total Score: 2 08/05/20 21 1:39 AM EST documented as of this encounter Care Teams Chemistry Physics Teacher Relationship Specialty Start Date End Date Arpita Asif MD [address] [place] [address] PCP - General Family Medicine 08/06/21 Arpita Asif MD [address] [place] [address] Insurance Assigned Provider 12/24/23 Arpita Asif MD [address] [place] [address] Insurance Assigned Provider 06/24/24 documented as of this encounter Additional Source Comments The information contained in this document represents components of the legal health record. It is not the complete legal health record.[facility]
--- OUTSIDE RECORDS SUMMARY | 2025-05-27 06:31 | XMS_ITS | Encounter Summary ---
Author Organization [facility] Address [address] [employer] [facility] [address] [place] [address] Phone Care Team Providers Care Service Crew Leader Name Role Phone Arpita Asif MD Primary Care Provider [phone] Arpita Asif MD Unavailable Margaret Myo MD Unavailable [phone] Arpita Asif MD Unavailable Arpita Asif MD Unavailable Encounter Details Date Type Department Care Team (Late st Contact Info) Description 10/03/2021 Procedure Pass [facility], Ct Scan - [address] [id number] Social History Tobacco Use Types Packs/Day Years [...] high school, GED, job training, learning the Burmese language, technical skills, or developing parenting skills)? [...] Date of Assessment Author No Risk Indicated 10/03/2021 1:24 PM EST Leslie Villalobos RN * [place] Suicide Severity Rating Scale (Screener/Recent Self-Report) Question Answer Date of Assessment Author 1. Wish to be (Past 1 Month) No 10/03/2021 1:24 PM EST Leslie Villalobos, SHELLY 2. Non-Specific Active Suici mal Thoughts (Past 1 Month) No 10/03/2021 1:24 PM EST Leslie Villalobos, SHELLY 6. Suicidal Behavior (Lifetime) No 2 1:24 PM EST Leslie Villalobos, SHELLY documented as of this encounter Plan of Treatment Upcoming Encounters Date Type Department Care Team (Late st Contact Info) Description 05/23/2025 Procedure Pass [facility] [address] [address] [place] [address] 09/18/2025 11:00 AM EST Office Visit [facility] [address] [address] Arpita Asif MD [address] [address] [email or web address] 11/05/2025 3:00 PM EST Appointment [facility] [address] [address] Arpita Asif MD [address] [place] [address] [email or web address] documented as of this encounter Visit Diagnoses [...] documented as of this encounter Care Teams Service Crew Leader Relationship Specialty Start Date End Date Arpita Asif MD [address] [address] [email or web address] PCP - General Family Medicine 08/06/21 Arpita Asif MD [address] [place] [address] [email or web address] Insurance Assigned Provider 12/26/21 06/26/22 Margaret Moy MD [address] [place] [address], 2[address] [place] [address] [email or web address] Insurance Assigned Provider 07/25/22 08/28/22 Arpita Asif MD [address] [address] [email or web address] Insurance Assigned Provider 12/24/23 03/24/24 Arpita Asif MD [address] [address] [email or web address] Insurance Assigned Provider 06/24/24 documented as of this encounter Additional Source Comments The information contained in this document represents components of the legal health record. It is not the complete legal health record.[facility]
--- OUTSIDE RECORDS SUMMARY | 2025-05-27 06:31 | XMS_ITS | Encounter Summary ---
Author Organization [facility] Address [address] [employer] [facility] [address] [place] [address] Phone Care Team Providers Care Real Estate Inspector Name Role Phone Arpita Asif MD Primary Care Provider [phone] Arpita Asif MD Unavailable Arpita Asif MD Unavailable Encounter Details Date Type Department Care Team (Late st Contact Info) Description 12/20/2022 Procedure Pass [facility], [facility] [address] [place], [place] [phone] Social History Tobacco Use Types Packs/Day Years [...] high school, GED, job training, learning the Qatari language, technical skills, or developing parenting skills)? [...] Upcoming Encounters Date Type Department Care Team ([facility] st Contact Info) Description 05/23/2025 Procedure Pass [facility] [address] [facility] [address] [place] [address] 09/18/2025 11:00 AM EST Office Visit [facility] 15 [facility] 201 [place] [address] Arpita Asif MD [address] [place] [address] 11/05/2025 3:00 PM EST Appointment [facility] [address] [facility] [address] [place] [address] Arpita Asif MD [address] [address] documented as of this encounter Visit Diagnoses Not on filedocumented in this encounter Additional Health Concerns Assessment Noted Time PHQ-2 Depression Total Score: 2 08/05/20 21 1:39 AM EST documented as of this encounter Care Teams Real Estate Inspector Relationship Specialty Start Date End Date Arpita Asif MD [address] [address] [email or web address] PCP - General Family Medicine 08/06/21 Arpita Asif MD [address] [address] [email or web address] Insurance Assigned Provider 12/24/23 Arpita Asif MD [address] [place] [address] [email or web address] Insurance Assigned Provider 06/24/24 documented as of this encounter Additional Source Comments The information contained in this document represents components of the legal health record. It is not the complete legal health record.[facility]
--- OUTSIDE RECORDS SUMMARY | 2025-05-27 06:31 | XMS_ITS | Encounter Summary ---
Author Organization [facility] Address [address] [facility] [address] [place] [address] Phone Care Team Providers Care Order Processing Manager Name Role Phone Arpita Asif MD Primary Care Provider [phone] Arpita Asif MD Unavailable Reason for Visit * Reason Comments Medication Refill Encounter Details Date Type Department Care Team (Late st Contact Info) Description 05/22/2025 Refill [facility] [address] [facility] [address] [place] [address] Arpita Asif MD 15 [facility] Michael. [address] [place] [address] [email or web address] Medication Refill Social History Tobacco Use Types Packs/Day Years [...] on file documented as of this encounter Progress Notes * Antonella Escobar MA - 05/24/2025 12:25 PM EDT Rx Care Gap Status - Instructions for Clinical Staff (prescriber discretion applies): > Mismatch review guide > N/a - No action needed Visit Info Last visit: 11/19/2024 Arpita Asif MD - Primary [facility] PRIMARY [facility]XBOW > Requested f/u: Not specified Upcoming visit: 09/18/2025 Arpita Asif MD - Primary Care [facility] PRIMARY [facility] ACTIONS TAKEN BY Antonella Escobar MA - Criteria met. Antidepressant / Anxiolytics (Non-Benzodiazepine) Rx Protocol - mirtazapine Criteria met; renew for up to 12 months. Visit in the past 14 months: Yes documented in this encounter Plan of Treatment Upcoming Encounters Date Type Department Care Team (Late st Contact Info) Description 05/23/2025 Procedure Pass [facility] [address] [address] 09/18/2025 11:00 AM EST Office Visit [facility] [address] [place] [address] Arpita Asif MD [address] [place] [address] 11/05/2025 3:00 PM EST Appointment [facility] [address] [address] Arpita Asif MD [address] [place] [address] documented as of this encounter Visit Diagnoses Not on filedocumented in this encounter Additional Health Concerns Assessment Noted Time PHQ-2 Depression Total Score: 2 08/05/20 1:39 AM EST documented as of this encounter Care Teams Order Processing Manager Relationship Specialty Start Date End Date Arpita Asif MD [address] [address] [email or web address] PCP - General Family Medicine 08/06/21 Arpita Asif MD [address] [address] [email or web address] Insurance Assigned Provider 06/24/24 documented as of this encounter Additional Source Comments The information contained in this document represents components of the legal health record. It is not the complete legal health record.[facility]
--- OUTSIDE RECORDS SUMMARY | 2025-05-27 06:31 | XMS_ITS | Encounter Summary ---
Author Organization [facility] Address [address] [place] [address] [place] [address] Phone Care Team Providers Care Smooth Stucco Resurfacer Name Role Phone Margaret Moy MD Unavailable Bárbara Renteria WINDOWS SYSTEMS ADMINISTRATOR Unavailable [phone] Sharyn Vale DO Unavailable Dunia Rayo WINDOWS SYSTEMS ADMINISTRATOR Unavailable [phone] Mojgan Maynard DO Unavailable Eri Solis MD Unavailable Nabeel Stoddard MD Unavailable Beatriz Millard MD Unavailable Raheem Yo MD Unavailable Rosalie Welch WINDOWS SYSTEMS ADMINISTRATOR Unavailable Lorie Mayo MD Unavailable Kyra Rosario WINDOWS SYSTEMS ADMINISTRATOR Unavailable [phone] Karlos Smart MD Unavailable Ángel Shelton MD Unavailable Anton Gibson MD Unavailable Jessy Lopez MD Unavailable Rick Andersen MD Unavailable [phone] Chinmay Margaret A Primary Care Provider Chinmay Margaret A Unavailable [phone] Chinmay, Margaret A Unavailable Arpita Asif MD Primary Care Provider [phone] Arpita Asif MD Unavailable Chinmay Margaret A Unavailable Arpita Asif MD Unavailable Arpita Asif MD Unavailable Encounter Details Date Type Department Care Team (Late Contact Info) Description 07/03/2018 Procedure Pass [facility], Ct Scan - [address] [address] Social History Tobacco Use Types Packs/Day Years [...] st Contact Info) Description 05/23/2025 Procedure Pass [facility] [address] [facility] [address] [place] [address] 09/18/2025 11:00 AM EST Office Visit [facility] [place] [facility] 15 [facility] [address] [place] [address] Arpita Asif MD 15 [facility] [address] [place] [address] 11/05/2025 3:00 PM EST Appointment [facility] [address] [address] Arpita Asif MD [address] [place] [address] [email or web address] documented as of this encounter Visit Diagnoses [...] documented as of this encounter Care Teams Smooth Stucco Resurfacer Relationship Specialty Start Date End Date Margaret Moy MD [address] [place] [address] PCP - General Internal Medicine 07/12/17 08/05/21 Arpita Asif MD [address] [place] [address] PCP - General Family Medicine 08/06/21 Margaret Moy MD [address] [place] [address] [email or web address] Historical LMR Provider 07/10/17 12/07/19 Bárbara Renteria NP 1 [place] [address] Historical LMR Provider 07/10/17 Sharyn Vale DO 30 [place] [address] [email or web address] Historical LMR Provider 07/10/17 12/07/19 Dunia Rayo NP [address] [place] [address] 340 [place] [address] Historical LMR Provider 07/10/17 Mojgan Maynard DO [address] [place] [address] 7 [place] [address] Historical LMR Provider 07/10/17 12/07/19 Eri Solis MD [address] [place] [address], 2nd [place] [address] Historical LMR Provider 07/10/17 Nabeel Stoddard MD 22 [facility] 301 [place] [address] Historical LMR Provider 07/10/17 0 Beatriz Millard MD 22 [facility] 102 [place] [address] Historical LMR Provider 07/10/17 12/07/19 Raheem Yo MD [address] [place] [address] [place] [address] [email or web address] Historical LMR Provider 07/10/17 12/07/19 Rosalie Welch NP [address] [place] [address] Historical LMR Provider 07/10/17 Lorie Mayo MD [address] [place] [address] [address] [place] [address] [email or web address] Historical LMR Provider 07/10/17 0 Kyra Rosario NP 30 [place] [address] Historical LMR Provider 07/10/17 Karlos Smart MD [address] [place] [address] Historical LMR Provider 07/10/17 Ángel Shelton MD [address] [place] [address] [address] [place] [address] Historical LMR Provider 07/10/17 12/07/19 Anton Gibson MD 61 [place] [address] Historical LMR Provider 07/10/17 Jessy Lopez MD [address] [place] [address] [email or web address] Historical LMR Provider 07/10/17 12/07/19 Rick Andersen MD [address] [place] [address] Historical LMR Provider 07/10/17 0 Margaret Moy MD [address] [place] [address] [email or web address] Insurance Assigned Provider 12/23/18 12/07/19 Margaret Moy MD [address] [place] [address] [email or web address] Insurance Assigned Provider 12/23/18 06/27/21 Arpita Asif MD [address] [place] [address] Insurance Assigned Provider 12/26/21 06/26/22 Margaret Moy MD [address] [place] [address] Insurance Assigned Provider 07/25/22 08/28/22 Arpita Asif MD [address] [address] Insurance Assigned Provider 12/24/23 03/24/24 Arpita Asif MD [address] [address] Insurance Assigned Provider 06/24/24 documented as of this encounter Additional Source Comments The information contained in this document represents components of the legal health record. It is not the complete legal health record.[facility]
--- OUTSIDE RECORDS SUMMARY | 2025-05-27 06:31 | XMS_ITS | Encounter Summary ---
Author Organization [facility] Address [facility] [employer] [facility] [address] [place] [address] Phone Care Team Providers Care Field Cane Scaler Name Role Phone Arpita Asif MD Primary Care Provider [phone] Arpita Asif MD Unavailable Encounter Details Date Type Department Care Team (Late st Contact Info) Description 04/23/2024 Procedure Pass [facility], [address] [id number] Social History Tobacco Use Types Packs/Day Years [...] st Contact Info) Description 05/23/2025 Procedure Pass [facility] 115[address] [facility] [address] [place] [address] 09/18/2025 11:00 AM EST Office Visit [facility] [place] [facility] 15 [facility] [address] [place] [address] Arpita Asif MD 15 [facility]. [address] [place] [address] 11/05/2025 3:00 PM EST Appointment [facility] [address] [place] [address] Arpita Asif MD [address] [address] documented as of this encounter Visit Diagnoses Not on filedocumented in this encounter Additional Health Concerns Assessment Noted Time PHQ-2 Depression Total Score: 2 08/05/20 1:39 AM EST documented as of this encounter Care Teams Field Cane Scaler Relationship Specialty Start Date End Date Arpita Asif MD [address] [address] PCP - General Family Medicine 08/06/21 Arpita Asif MD [address] [place] [address] [email or web address] Insurance Assigned Provider 06/24/24 documented as of this encounter Additional Source Comments The information contained in this document represents components of the legal health record. It is not the complete legal health record.[facility]
--- OUTSIDE RECORDS SUMMARY | 2025-05-27 06:31 | XMS_ITS | Encounter Summary ---
Author Organization [facility] Address [address] [place] [address] [place] [address] Phone Care Team Providers Care Apartment Leasing Agent Name Role Phone Margaret Moy MD Unavailable Bárbara Renteria DIRECTOR EXTERNAL COMMUNICATIONS Unavailable [phone] Sharyn Vale DO Unavailable Dunia Rayo DIRECTOR EXTERNAL COMMUNICATIONS Unavailable Mojgan Maynard DO Unavailable Eri Solis MD Unavailable Nabeel Stoddard MD Unavailable [phone] Beatriz Millard MD Unavailable Raheem Yo MD Unavailable [phone] Rosalie Welch DIRECTOR EXTERNAL COMMUNICATIONS Unavailable Lorie Mayo MD Unavailable Kyra Rosario DIRECTOR EXTERNAL COMMUNICATIONS Unavailable [phone] Karlos Smart MD Unavailable Ángel Shelton MD Unavailable Anton Gibson MD Unavailable Jessy Lopez MD Unavailable Rick Andersen MD Unavailable Chinmay Margaret A Primary Care Provider Chinmay Margaret A Unavailable Chinmay, Margaret A Unavailable [phone] Arpita Asif MD Primary Care Provider [phone] Arpita Asif MD Unavailable Chinmay Margaret A Unavailable Arpita Asif MD Unavailable Arpita Asif MD Unavailable Encounter Details Date Type Department Care Team (Late st Contact Info) Description 08/20/2017 Procedure Pass [facility], Ct Scan - [address] [address] Social History Tobacco Use Types Packs/Day Years Used Date Smoking Tobacco: Former Smokeless Tobacco: Never Comments Unknown Sex and Gender Information Value Date Recorded Sex Assigned at Female 09/26/2017 9:32 AM EST Legal Sex Female 7:42 PM EST Gender Identity Female 09/26/2017 9:32 AM EST Sexual Orientation Straight 09/26/2017 9: 32 AM EST documented as of this encounter Plan of Treatment Upcoming Encounters Date Type Department Care Team (Late Contact Info) Description 05/23/2025 Procedure Pass [facility] [address] [place] [address] [place] [address] 09/18/2025 11:00 AM EST Office Visit [facility] [place] [facility] 15 [facility] [address] [place] [address] Arpita Asif MD 15 [facility] [address] [place] [address] [email or web address] 11/05/2025 3:00 PM EST Appointment [facility] [address] [place] [address] Arpita Asif MD [address] [place] [address] [email or web address] documented as of this encounter Visit Diagnoses [...] documented as of this encounter Care Teams Apartment Leasing Agent Relationship Specialty Start Date End Date Margaret Moy MD [address] [place] [address] [email or web address] PCP - General Internal Medicine 07/12/17 08/05/21 Arpita Asif MD [address] [place] [address] [email or web address] PCP - General Family Medicine 08/06/21 Margaret Moy MD [address] [place] [address] [email or web address] Historical LMR Provider 07/10/17 12/07/19 Bárbara Renteria NP [address] [place] [address] Historical LMR Provider 07/10/17 Sharyn Vale DO 30 [place] [address] [email or web address] Historical LMR Provider 07/10/17 12/07/19 Dunia Rayo NP [address] [place] [address] [address] [place] [address] Historical LMR Provider 07/10/17 Mojgan Maynard DO [address] [place] [address] 7 [place] [address] [email or web address] Historical LMR Provider 07/10/17 12/07/19 Eri Solis MD [address] [place] [address] [place] [address] Historical LMR Provider 07/10/17 Nabeel Stoddard MD [address] [place] [address], [address] [place] [address] Historical LMR Provider 07/10/17 0 Beatriz Millard MD [address] [place] [address], [address] [place] [address] Historical LMR Provider 07/10/17 12/07/19 Raheem Yo MD [address] [place] [address] [place] [address] [email or web address] Historical LMR Provider 07/10/17 12/07/19 Rosalie Welch NP [address] [place] [address] Historical LMR Provider 07/10/17 Lorie Mayo MD [address] [place] [address] [address] [place] [address] [email or web address] Historical LMR Provider 07/10/17 0 Kyra Rosario NP 30 [place] [address] Historical LMR Provider 07/10/17 Karlos Smart MD [address] [place] [address] Historical LMR Provider 07/10/17 Ángel [place] MD 22 [facility] [address] [place] [address] [email or web address] Historical LMR Provider 07/10/17 12/07/19 Anton Gibson MD 61 [place] [address] Historical LMR Provider 07/10/17 Jessy Lopez MD -[address] [place] [address] [email or web address] Historical LMR Provider 07/10/17 12/07/19 [place] [address] Historical LMR Provider 07/10/17 0 Margaret Moy MD [address] [place] [address] Insurance Assigned Provider 12/23/18 12/07/19 Margaret Moy MD [address] [place] [address] Insurance Assigned Provider 12/23/18 06/27/21 Arpita Asif MD [address] [place] [address] Insurance Assigned Provider 12/26/21 06/26/22 Margaret Moy MD [address] [place] [address] Insurance Assigned Provider 07/25/22 08/28/22 Arpita Asif MD [address] [place] [address] Insurance Assigned Provider 12/24/23 03/24/24 Arpita Asif MD [address] [address] Insurance Assigned Provider 06/24/24 documented as of this encounter Additional Source Comments The information contained in this document represents components of the legal health record. It is not the complete legal health record.[facility]
--- OUTSIDE RECORDS SUMMARY | 2025-05-27 06:31 | XMS_ITS | Encounter Summary ---
Author Organization [facility] Address [facility] ([place], [place]) [address] [place] [address] Phone Care Team Providers Care Engineering Programmer Name Role Phone Arpita Asif MD Primary Care Provider [phone] Arpita Asif MD Unavailable Arpita Asif MD Unavailable Encounter Details Date Type Department Care Team (Late st Contact Info) Description 09/27/2023 Procedure Pass [facility] 30 [place] [address] Social History Tobacco Use Types Packs/Day Years [...] st Contact Info) Description 05/23/2025 Procedure Pass [facility] [address] [facility] [address] [place] [address] 09/18/2025 11:00 AM EST Office Visit [facility] [place] [facility] 15 [facility] [address] [place] [address] Arpita Asif MD 15 [facility] [address] [place] [address] 11/05/2025 3:00 PM EST Appointment [facility] [address] [place] [address] Arpita Asif MD [address] [address] [email or web address] documented as of this encounter Visit Diagnoses Not on filedocumented in this encounter Additional Health Concerns Assessment Noted Time PHQ-2 Depression Total Score: 2 08/05/20 1:39 AM EST documented as of this encounter Care Teams Engineering Programmer Relationship Specialty Start Date End Date Arpita Asif MD [address] [address] [email or web address] PCP - General Family Medicine 08/06/21 Arpita Asif MD [address] [address] Insurance Assigned Provider 12/24/23 Arpita Asif MD [address] [address] [email or web address] Insurance Assigned Provider 06/24/24 documented as of this encounter Additional Source Comments The information contained in this document represents components of the legal health record. It is not the complete legal health record.[facility]
--- OUTSIDE RECORDS SUMMARY | 2025-05-27 06:31 | XMS_ITS | Encounter Summary ---
Author Organization [facility] Address [address] [facility] [address] [place] [address] Phone Care Team Providers Care Yoga Coordinator Name Role Phone Arpita Asif MD Primary Care Provider Arpita Asif MD Unavailable Margaret Moy MD Unavailable [phone] Arpita Asif MD Unavailable Arpita Asif MD Unavailable Encounter Details Date Type Department Care Team (Late st Contact Info) Description 10/03/2021 Procedure Pass [facility], Ct Scan - [address] [id number] Social History Tobacco Use Types Packs/Day Years [...] high school, GED, job training, learning the Guatem[place] language, technical skills, or developing parenting skills)? [...] 1:24 PM EST Leslie Villalobos RN * [place] Suicide Severity Rating Scale (Screener/Recent Self-Report) Question [...] st Contact Info) Description 05/23/2025 Procedure Pass [facility] [address] [place] [address] [place] [address] 09/18/2025 11:00 AM EST Office Visit [facility] [place] [facility] [address] [address] Arpita Asif MD [address] [address] 11/05/2025 3:00 PM EST Appointment [facility] [address] [address] Arpita Asif MD [address] [place] [address] documented as of this encounter Visit Diagnoses [...] documented as of this encounter Care Teams Yoga Coordinator Relationship Specialty Start Date End Date Arpita Asif MD [address] [address] [email or web address] PCP - General Family Medicine 08/06/21 Arpita Asif MD [address] [place] [address] Insurance Assigned Provider 12/26/21 06/26/22 Margaret Moy MD [address] [place] [address], 2nd [place] [address] [email or web address] Insurance Assigned Provider 07/25/22 08/28/22 Arpita Asif MD [address] [address] [email or web address] Insurance Assigned Provider 12/24/23 03/24/24 Arpita Asif MD [address] [address] [email or web address] Insurance Assigned Provider 06/24/24 documented as of this encounter Additional Source Comments The information contained in this document represents components of the legal health record. It is not the complete legal health record.[facility]
--- OUTSIDE RECORDS SUMMARY | 2025-05-27 06:31 | XMS_ITS | Encounter Summary ---
Author Organization [facility] Address [address] [facility] [address] [place] [address] Phone Care Team Providers Care Special Education Paraeducator Name Role Phone Arpita Asif MD Primary Care Provider [phone] Arpita Asif MD Unavailable Reason for Visit * Reason Comments Medication Refill Encounter Details Date Type Department Care Team (Late st Contact Info) Description 05/22/2025 Refill [facility] [place] [facility] 15 [facility] [address] [place] [address] Arpita Asif MD 15 [facility] [address] [place] [address] [email or web address] Medication Refill Social History Tobacco Use Types [...] as of this encounter Progress Notes * Patricia Livingston CMA - 05/24/2025 11:41 AM EDT Rx Care Gap Status - Instructions for Clinical Staff (prescriber discretion applies): > Mismatch review guide > At least one request does not meet full criteria. Specifics below. > Labs due: Please remind patient. > Orders needed: Click OPA and Accept to open SmartSet. Lipid panel - Needs order * Visit Info Last visit: 11/19/2024 Arpita Asif MD - [facility] > Requested f/u: Not specified Upcoming visit: 09/18/2025 Arpita Asif MD - Primary Care [facility] ACTIONS TAKEN BY Patricia Livingston CMA Cholesterol Medication Rx Protocol - atorvastatin calcium Criteria not met; renew for up to 3 months. (unless patient is on high intensity statin, in which case LDL level may not be needed at provider discretion) Visit in the past 14 months: Yes Clinical criteria: - Lipid panel within past year: No Lab Results Component Value Date LDL 82 09/16/2023 HDL 58 09/16/2023 CARDIAC RISK RATIO 2.8 (L) 09/16/2023 TRIGLYCERIDES 108 09/16/2023 CHOLESTEROL 162 09/16/2023 Health Maintenance Labs Due / Due Soon Topic Date Due CREATININE LEVEL 04/12/2025 POTASSIUM LEVEL 04/12/2025 documented in this encounter Plan of Treatment Upcoming Encounters Date Type Department Care Team (Late st Contact Info) Description 05/23/2025 Procedure Pass [facility] [address] [place] [address] 09/18/2025 11:00 AM EST Office Visit [facility] [place] [facility] 15 [facility] [address] [place] [address] Arpita Asif MD 15 [facility] [address] [place] [address] 11/05/2025 3:00 PM EST Appointment [facility] [address] [place] [address] Arpita Asif MD [address] [place] [address] [email or web address] documented as of this encounter Visit Diagnoses Diagnosis Transient vision disturbance of left eye Unspecified visual disturbance Visit for screening mammogram documented in this encounter Additional Health Concerns Assessment Noted Time PHQ-2 Depression Total Score: 2 08/05/20 1:39 AM EST documented as of this encounter Care Teams Special Education Paraeducator Relationship Specialty Start Date End Date Arpita Asif MD [address] [address] PCP - General Family Medicine 08/06/21 Arpita Asif MD [address] [address] [email or web address] Insurance Assigned Provider 06/24/24 documented as of this encounter Additional Source Comments The information contained in this document represents components of the legal health record. It is not the complete legal health record.[facility]
--- OUTSIDE RECORDS SUMMARY | 2025-05-27 06:31 | XMS_ITS | Encounter Summary ---
Author Organization [facility] Address [address] [facility] [address] [place] [address] Phone Care Team Providers Care Manager Application Development Name Role Phone Margaret Moy MD Primary Care Provider [phone] Margaret Moy MD Unavailable Arpita Asif MD Primary Care Provider Arpita Asif MD Unavailable Margaret Moy MD Unavailable [phone] Arpita Asif MD Unavailable Arpita Asif MD Unavailable Encounter Details Date Type Department Care Team (Late st Contact Info) Description 05/13/2020 Ancillary Orders Virtual Department [address] [place] [address] Margaret Moy MD [address] [facility], 2nd [place] [address] Breast screening Social History Tobacco Use Types [...] st Contact Info) Description 05/23/2025 Procedure Pass [facility] [address] [place] [address] 09/18/2025 11:00 AM EST Office Visit [facility] [address] [address] Arpita Asif MD [address] [place] [phone] [email or web address] 11/05/2025 3:00 PM EST Appointment [facility] [address] [place] [address] Arpita Asif MD [address] [place] [phone] [email or web address] documented as of this encounter Results * BI MAMMOGRAM SCREENING WITH TOMOSYNTHESIS WITH CAD (BILATERAL) (06/26/2020 2:47 PM EDT) Anatomical Region Laterality Modality Breast Left, Breast Right, Breast Bilateral Bila teral Mammography 06/26/2020 3:57 PM EDT Impressions 06/26/2020 3:59 PM EDT No mammographic evidence of malignancy. BI-RADS CATEGORY: 2 - Benign finding. DENSITY: There are scattered fibroglandular densities. Narrative 06/26/2020 3:59 PM EDT Standard digital full-field 2-D C view and two-plane tomographic imaging was performed and compared with multiple prior studies, most recently 03/01/2016, with utilization of computer-aided detection. The breasts are composed of scattered fibroglandular densities. The stromal markings are essentially unchanged in overall appearance and distribution. No dominant spiculated mass, suspicious clustered microcalcifications, or focal zone of pathologic skin thickening or retraction are noted to have arisen in the interim. Procedure Note Claude Jackson MD - 06/26/2020 Standard digital full-field 2-D C view and two-plane tomographic imagingwas performed and compared with multiple prior studies, most btuwupty44/13/2016, with utilization of computer-aided detection. The breasts are composed of scattered fibroglandular densities. Thestromal markings are essentially unchanged in overall appearance anddistribution. No dominant spiculated mass, suspicious clusteredmicrocalcifications, or focal zone of pathologic skin thickening orretraction are noted to have arisen in the interim. IMPRESSION: No mammographic evidence of malignancy. BI-RADS CATEGORY: 2 - Benign finding. DENSITY: There are scattered fibroglandular densities. us Margaret Moy MD IMG MG EXAMS [...] documented as of this encounter Care Teams Manager Application Development Relationship Specialty Start Date End Date Margaret Moy MD [address] [place] [address], [address] [place] [address] PCP - General Internal Medicine 07/12/17 08/05/21 Arpita Asif MD [address] [address] PCP - General Family Medicine 08/06/21 Margaret Moy MD [address] [place] [phone] Insurance Assigned Provider 12/23/18 06/27/21 Arpita Asif MD [address] [phone] Insurance Assigned Provider 12/26/21 06/26/22 Margaret Moy MD [address] [place] [phone] Insurance Assigned Provider 07/25/22 08/28/22 Arpita Asif MD [address] [phone] Insurance Assigned Provider 12/24/23 03/24/24 Arpita Asif MD [address] [phone] Insurance Assigned Provider 06/24/24 documented as of this encounter Additional Source Comments The information contained in this document represents components of the legal health record. It is not the complete legal health record.[facility]
--- OUTSIDE RECORDS SUMMARY | 2025-05-27 06:32 | XMS_ITS | Encounter Summary ---
Author Organization [facility] Address [facility] [employer] [facility] [address] [place] [address] Phone Care Team Providers Care Wirer Helper Name Role Phone Arpita Asif MD Primary Care Provider [phone] Arpita Asif MD Unavailable Encounter Details Date Type Department Care Team (Late st Contact Info) Description 04/12/2024 Procedure Pass [facility], Ct Scan - [address] [id number] Social History Tobacco Use Types Packs/Day Years [...] st Contact Info) Description 05/23/2025 Procedure Pass [facility] [address] [facility] [address] [place] [address] 09/18/2025 11:00 AM EST Office Visit [facility] [address] [facility] [address] [place] [address] Arpita Asif MD [address] [facility]. [address] [place] [address] 11/05/2025 3:00 PM EST Appointment [facility] [address] [place] [address] Arpita Asif MD [address] [address] documented as of this encounter Visit Diagnoses Not on filedocumented in this encounter Additional Health Concerns Assessment Noted Time PHQ-2 Depression Total Score: 2 08/05/20 1:39 AM EST documented as of this encounter Care Teams Wirer Helper Relationship Specialty Start Date End Date Arpita Asif MD [address] [address] PCP - General Family Medicine 08/06/21 Arpita Asif MD [address] [place] [address] [email or web address] Insurance Assigned Provider 06/24/24 documented as of this encounter Additional Source Comments The information contained in this document represents components of the legal health record. It is not the complete legal health record.[facility]
--- OUTSIDE RECORDS SUMMARY | 2025-05-27 06:32 | XMS_ITS | Encounter Summary ---
Author Organization [facility] Address [facility] [employer] [facility] [address] [place] [address] Phone Care Team Providers Care Eyelet Cutter Name Role Phone Margaret Moy MD Primary Care Provider [phone] Margaret Moy MD Unavailable [phone] Arpita Asif MD Primary Care Provider Arpita Asif MD Unavailable Margaret Moy MD Unavailable [phone] Arpita Asif MD Unavailable Arpita Asif MD Unavailable Encounter Details Date Type Department Care Team (Late st Contact Info) Description 05/09/2021 Procedure Pass [facility], Ct Scan - [facility] [address] [place] [address] Social History Tobacco Use Types Packs/Day Years [...] 6:14 PM EDT Jeannie Staples, RN * Wirt Suicide Severity Rating Scale (Screener/Recent Self-Report) Question [facility] [address] [address] 09/18/2025 11:00 AM EST Office Visit [facility] [place] [facility] [address] [address] Arpita Asif MD [address] [place] [phone] [email or web address] 11/05/2025 3:00 PM EST Appointment [facility] [address] [address] Arpita Asif MD [address] [place] [address] [email or web address] documented as of this encounter Visit Diagnoses [...] documented as of this encounter Care Teams Eyelet Cutter Relationship Specialty Start Date End Date Margaret Moy MD [address] [place] [phone] [email or web address] PCP - General Internal Medicine 07/12/17 08/05/21 Arpita Asif MD [address] [place] [phone] PCP - General Family Medicine 08/06/21 Margaret Moy MD [address] [place] [phone] Insurance Assigned Provider 12/23/18 06/27/21 Arpita Asif MD [address] [place] [phone] Insurance Assigned Provider 12/26/21 06/26/22 Margaret Moy MD [address] [place] [phone] Insurance Assigned Provider 07/25/22 08/28/22 Arpita Asif MD [address] [place] [phone] Insurance Assigned Provider 12/24/23 03/24/24 Arpita Asif MD [address] [place] [address] [email or web address] Insurance Assigned Provider 06/24/24 documented as of this encounter Additional Source Comments The information contained in this document represents components of the legal health record. It is not the complete legal health record.[facility]
== END 2025-05-27 06:29 | disposition home or self-care (01) ==
PROVIDERS: Emergency Medicine Emergency Medical Services; Emergency Provider Emergency Medicine; PCP Family Medicine
DX: F10.129 Alcohol abuse with intoxication, unspecified (principal); Y90.8 Blood alcohol level of 240 mg/100 ml or more
CPT/HCPCS: 36415; 80048; 80307; 85025; 96360; 99284